=== PATIENT | female | born 1970 | race Caucasian/White ===

== ENCOUNTER 2018-11-18 18:10 | Emergency (ER) | payer OTHER ==
[2018-11-18 18:18] VITALS: TEMP 97.2; BMI 28.3
[2018-11-18] MEDS ORDERED: METOCLOPRAMIDE HCL INJECTION 10 MG/2 ML VIAL IVPUSH ONE (18:50)
--- NOTE | 2018-11-18 18:57 | PDOC ---
Attending Attestation - HPI HPI: 11/18/18 19:47 The patient is a 47 year old female with a significant past medical history of hypertension who presents to the emergency department with an allergic reaction since earlier this evening. The patient reports that she was at home eating dinner(rice and steak) that she made when she began to feel her throat scratching followed by associated choking sensation. The patient states that she subsequently began vomiting. The patient states that she administered her epipen to herself. She reports some associated nausea and lightheadedness. She also endorses some lower left quadrant abdominal pain. The patient denies any other symptoms or complaints. - Physicial Exam PE: 11/18/18 19:47 GENERAL: The patient is in no acute distress. HEAD: Normal with no signs of trauma. EYES: PERRLA, EOMI, sclera anicteric, conjunctiva clear. ENT: Uvula midline. Ears normal, nares patent, oropharynx clear without exudates. Moist mucous membranes. NECK: Normal range of motion, supple without lymphadenopathy, JVD, or masses. LUNGS: Breath sounds equal, clear to auscultation bilaterally. No wheezes, and no crackles. HEART:(+)Regular rhythm, normal S1 and S2 without murmur, rub or gallop. ABDOMEN: Soft, nontender, normoactive bowel sounds. No guarding, no rebound. No masses palpable. EXTREMITIES: Normal range of motion, no edema. No clubbing or cyanosis. No erythema, or tenderness. NEUROLOGICAL: Cranial nerves II through XII grossly intact. Normal speech. No focal neurological deficits. MUSCULOSKELETAL: Back non-tender to palpation, no CVA tenderness SKIN: Warm, Dry, normal turgor, no rashes or lesions noted. Documentation prepared by Margarette Lopez, acting as associate medical director for Marcelle Clark MD. <Margarette Lopez - Last Filed: 11/18/18 19:47> - Resident Resident Name: Gloria Looney - ED Attending Attestation I have performed the following: I have examined & evaluated the patient, The case was reviewed & discussed with the resident, I agree w/resident's findings & plan, Exceptions are as noted - Medical Decision Making 11/18/18 18:55 Presents with choking sensation Unsure of the trigger (she was not eating anything that is a trigger for her) Complaints of palpitations, lightheadedness 11/18/18 19:18 EKG - sinus tachycardia rate of 108bpm, axis nml, intervals nml, no st elevation or depression, t waves upright 11/18/18 19:45 Laboratory Tests 11/18/18 19:05 WBC 4.8 Hgb 14.2 Hct 41.1 Plt Count 233 Neutrophils % 31.8 L Lymphocytes % 53.9 H 11/18/18 20:12 Laboratory Tests 11/18/18 19:05 Sodium 142 Potassium 3.3 L Chloride 104 Carbon Dioxide 28 BUN 12 Creatinine 0.9 Random Glucose 123 H 11/18/18 23:18 upon re assessment, pt states she feels good and would like to go home No wheezing, no stridor No difficulty swallowing or drooling Small areal left flank that is pruritis, no urticaria Will discharge to home Will follow up with [facility] in [place] <Marcelle Clark - Last Filed: 11/18/18 23:19> *DC/Admit/Observation/Transfer <Margarette Lopez - Last Filed: 11/18/18 19:47> - Discharge Dispostion Decision to Admit order: No <Marcelle Clark - Last Filed: 11/18/18 23:19> Diagnosis at time of Disposition: Allergic reaction Qualifiers: Encounter type: initial encounter Qualified Code(s): T78.40XA - Allergy, unspecified, initial encounter - Discharge Dispostion Disposition: HOME Condition at time of disposition: Stable - Prescriptions Prescriptions: Epinephrine [Epipen] 0.3 mg IJ ONCE #1 auto.injct Methylprednisolone [Medrol Dose Storm] 4 mg PO ASDIR #21 tablet - Referrals Referrals: Claudette Jaime [Primary Care Provider] - - Patient Instructions Printed Discharge Instructions: DI for General Allergic Reactions Additional Instructions: Ms Clark thank you for coming in to the ER today You were seen in the ED for complaints of difficulty breathing prior to epipen administration. In the ED you were evaluated with labwork, treated with fluids and anti-nausea medications. You were observed for several hours and had symptom improvement. There does not appear to be an acute need for immediate hospitalization. You are advised to follow up with your Primary Care Physician within 1 week. You were given a prescription for epi-pen to be used when necessary and a short course of steroids, a medrol-dose storm to be taken as directed. Please follow up with your [facility] within 1 week. Return to the ED immediately if you experience worsening difficulty breathing, shortness of breath, chest pain, swelling on the neck, face, lips, eyes, hands or any loss of consciousness or nausea or vomiting. - Post Discharge Activity
[2018-11-18] MEDS ORDERED: METOCLOPRAMIDE HCL INJECTION 10 MG/2 ML VIAL ONE (18:58)
[2018-11-18] MEDS ORDERED: SODIUM CHLORIDE 1,000 ML IV SCH (19:00)
--- NOTE | 2018-11-18 19:01 | PDOC ---
History of Present Illness - General Chief Complaint: Allergic Reaction Stated Complaint: ALLERGIC REACTION Time Seen by Provider: 11/18/18 18:38 - History of Present Illness Initial Comments: 11/18/18 18:53 47 year old woman with a history of HTN and multiple allergies, who presents with difficulty breathing and choking sensation occurring at 5:30pm while eating food. The patient vomited at that time and then gave herself an epipen. The patient does not know what caused her allergy as everything she was eating were things she did not have an allergy towards. She denies any recent illness, fever, travel, long flights or car rides. She admits to current nausea, lightheadedness and palpitations. She denies abdominal pain, dysuria, hematuria , chest pain or current shortness of breath. Brand Marketing Coordinator: Jess PCP: Jaqui Past History - Past Medical History Allergies/Adverse Reactions: Allergies Allergy/AdvReac Type Severity Reaction Status Date / Time nut - unspecified Allergy Severe Difficulty Verified 11/18/18 18:44 Breathing latex Allergy Verified 11/18/18 18:13 morphine Allergy Verified 11/18/18 18:13 Penicillins Allergy Verified 11/18/18 18:13 sulfacetamide Allergy Verified 11/18/18 18:13 Home Medications: Ambulatory Orders Amlodipine Besylate 2.5 mg PO DAILY 11/18/18 EPINEPHrine (EPI-PEN 0.3MG) [Epipen 0.3MG -] 0.3 mg IM ASDIR 11/18/18 Epinephrine [Epipen] 0.3 mg IJ ONCE #1 auto.injct 11/18/18 Furosemide 20 mg PO DAILY 11/18/18 Methylprednisolone [Medrol Dose Storm] 4 mg PO ASDIR #21 tablet 11/18/18 Thyroid,Pork [[facility]mit Thyroid] 30 mg PO DAILY 11/18/18 COPD: No Thyroid Disease: No - Immunization History Immunization Up to Date: Yes - Suicide/Smoking/Psychosocial Hx Smoking History: Never smoked Information on smoking cessation initiated: No Hx Alcohol Use: No Drug/Substance Use Hx: No Review of Systems - Review of Systems Able to Perform ROS?: Yes Is the patient limited Greek proficient: No Constitutional: No: Chills, Diaphoresis *Physical Exam - Vital Signs Last Vital Signs Temp Pulse Resp BP Pulse Ox 97.2 F L 115 H 18 141/98 100 11/18/18 18:14 11/18/18 18:14 11/18/18 18:14 11/18/18 18:14 11/18/18 18:14 - Physical Exam Comments: 11/18/18 19:19 GENERAL: Awake, alert, and fully oriented, anxious appearing, no acute distress HEAD: No signs of trauma, normocephalic, atraumatic EYES: EOMI, sclera anicteric, conjunctiva clear ENT: oropharynx clear without exudates. Moist mucosa NECK: Normal ROM, supple LUNGS: No distress, speaks full sentences, clear to auscultation bilaterally HEART: tachycardic rate and regular rhythm, normal S1 and S2, no murmurs, rubs or gallops, peripheral pulses normal and equal bilaterally. ABDOMEN: Soft, LLQ tenderness to palpation, normoactive bowel sounds. No guarding, no rebound. No masses EXTREMITIES : Normal inspection, Normal range of motion, no edema. No clubbing or cyanosis. NEUROLOGICAL: Cranial nerves II through XII grossly intact. Normal speech, no focal sensorimotor deficits SKIN: Warm, Dry, normal turgor, no rashes or lesions noted Moderate Sedation - Procedure Monitoring Vital Signs: Procedure Monitoring Vital Signs Temperature 97.2 F L 11/18/18 18:14 Pulse Rate 115 H 11/18/18 18:14 Respiratory Rate 18 11/18/18 18:14 Blood Pressure 141/98 11/18/18 18:14 O2 Sat by Pulse Oximetry (%) 100 11/18/18 18:14 ED Treatment Course - LABORATORY CBC & Chemistry Diagram: 11/18/18 19:05 11/18/18 19:05 Medical Decision Making - Medical Decision Making 11/18/18 19:18 47 year old woman with a history of HTN and multiple allergies, who presents with difficulty breathing and choking sensation occurring at 5:30 while eating food. The patient vomited at that time and then gave herself an epipen. The patient does not know what caused her allergy as everything she was eating were things she did not have an allergy towards. ED Course: Likely allergic reaction w/ epipen use cbc, cmp, ua, ucx, upreg, ekg ivf, reglan 11/18/18 20:03 EKG: sinus tachycardia HR 108, no interval abnormalities, narrow QRS, ST and T wave segments and morphology normal. Patient reassessed, feels improved K3.3, replete 11/18/18 20:34 Will observe patient and discharge if stable. *DC/Admit/Observation/Transfer Diagnosis at time of Disposition: Allergic reaction - Discharge Dispostion Disposition: HOME Condition at time of disposition: Stable Decision to Admit order: No - Prescriptions Prescriptions: Epinephrine [Epipen] 0.3 mg IJ ONCE #1 auto.injct Methylprednisolone [Medrol Dose Storm] 4 mg PO ASDIR #21 tablet - Referrals Referrals: Claudette Jaime [Primary Care Provider] - - Patient Instructions Printed Discharge Instructions: DI for General Allergic Reactions Additional Instructions: You were seen in the ED for complaints of difficulty breathing prior to epipen administration. In the ED you were evaluated with labwork, treated with fluids and anti-nausea medications. You were observed for several hours and had symptom improvement. There does not appear to be an acute need for immediate hospitalization. You are advised to follow up with your Primary Care Physician within 1 week. You were given a prescription for epi-pen to be used when necessary and a short course of steroids, a medrol-dose storm to be taken as directed. Please follow up with your [facility] within 1 week. Return to the ED immediately if you experience worsening difficulty breathing, shortness of breath, chest pain, swelling on the neck, face, lips, eyes, hands or any loss of consciousness or nausea or vomiting. - Post Discharge Activity
[2018-11-18 19:12] LABS: BASO % 1.2 % (0-2.0); EOS % 2.3 % (0-4.5); HEMATOCRIT 41.1 % (32.4-45.2); HEMOGLOBIN 14.2 GM/dL (10.7-15.3); LYMPH % 53.9 % (8-40); MCH 32.2 pg (25.7-33.7); MCHC 34.6 g/dl (32.0-36.0); MEAN CELL VOLUME 93.1 fl (80-96); MEAN PLT VOLUME 9.2 fl (7.5-11.1); MONO % 10.8 % (3.8-10.2); NEUT % 31.8 % (42.8-82.8); PLATELET COUNT 233 K/MM3 (134-434); RBC 4.42 M/mm3 (3.60-5.2); RDW 12.2 % (11.6-15.6); WHITE BLOOD COUNT 4.8 K/mm3 (4.0-10.0)
[2018-11-18 19:39] LABS: ALBUMIN 4.2 g/dl (3.4-5.0); ALK PHOS 91 U/L (45-117); ANION GAP 9 MMOL/L (8-16); BILIRUBIN,TOTAL 0.4 mg/dL (0.2-1); BLOOD UREA NITROGEN 12 mg/dL (7-18); CALCIUM 9.4 mg/dL (8.5-10.1); CHLORIDE 104 mmol/L (98-107); CO2 28 mmol/L (21-32); CREATININE 0.9 mg/dL (0.55-1.3); GLUCOSE,RANDOM 123 mg/dL (74-106); POTASSIUM 3.3 mmol/L (3.5-5.1); SGOT/AST 18 U/L (15-37); SGPT/ALT 15 U/L (13-61); SODIUM 142 mmol/L (136-145); TOT PROT 7.9 g/dl (6.4-8.2)
[2018-11-18] MEDS ORDERED: POTASSIUM CHLORIDE ORAL LIQUID 20 MEQ/15 ML PO ONE (20:03)
[2018-11-18] MEDS ORDERED: POTASSIUM CHLORIDE TABS 20 MEQ TABLET.ER (FP) PO ONE (20:08)
[2018-11-18 20:20] LABS: URINE APPEARANCE CLEAR; URINE BILIRUBIN NEGATIVE (<2.0 mg/dL); URINE COLOR LTYELLOW; URINE GLUCOSE (UA) NEGATIVE (NEGATIVE); URINE KETONE NEGATIVE (NEGATIVE); URINE LEUK ESTERASE NEGATIVE (NEGATIVE); URINE NITRITE NEGATIVE (NEGATIVE); URINE PROTEIN NEGATIVE (NEGATIVE); URINE UROBILINOGEN NEGATIVE mg/dL (0.2-1.0)
[2018-11-18 20:35] LABS: HCG,QUALITATIVE URINE Negative
[2018-11-18 22:47] VITALS: BP 149/78; PULSE 98
--- NOTE | 2018-11-19 19:06 | EKG ---
Test Reason : Blood Pressure : / mmHG Vent. Rate : 108 BPM Atrial Rate : 108 BPM P-R Int : 164 ms QRS Dur : 064 ms QT Int : 324 ms P-R-T Axes : 058 015 031 degrees QTc Int : 434 ms SINUS TACHYCARDIA OTHERWISE NORMAL ECG NO PREVIOUS ECGS AVAILABLE Confirmed by HOWARD WILD MD ([id number]) on 11/19/2018 7:06:15 PM Referred By: Confirmed By:HOWARD WILD MD
== END 2018-11-18 23:25 | disposition home or self-care (01) ==
LOC: JER 18:10
PROC: 3E033GC Introduction of Other Therapeutic Substance into Peripheral Vein, Percutaneous Approach (ICD-10-PCS; principal; 2018-11-18)
DX: T78.49XA Other allergy, initial encounter (principal); E87.6 Hypokalemia; I10 Essential (primary) hypertension
CPT/HCPCS: 36415; 80053; 81003; 84703; 85025; 87086; 93005; 93010; 99283-25; J7030